=== PATIENT | male | born 1985 | race Caucasian/White ===

== ENCOUNTER 2018-01-09 10:36 | Emergency (ER) | payer OTHER ==
[2018-01-09 10:43] VITALS: BP 128/80
--- NOTE | 2018-01-09 11:38 | RADIOLOGY REPORT (SQ) ---
EXAM DESCRIPTION: SHOULDER LEFT 2 OR MORE VIEWS COMPLETED DATE/TIME: 01/09/2018 11:25 am REASON FOR STUDY: pain and injury COMPARISON: None. NUMBER OF VIEWS: Three views. TECHNIQUE: Internal rotation, external rotation, and Y view images acquired of the left shoulder. LIMITATIONS: None. FINDINGS: MINERALIZATION: Normal. BONES: No acute fracture or dislocation. No worrisome bone lesions. JOINTS: No dislocation. VISUALIZED LUNGS AND RIBS: No pneumothorax. No rib fracture. SOFT TISSUES: No radiopaque foreign body. OTHER: No other significant finding. IMPRESSION: NEGATIVE STUDY OF THE LEFT SHOULDER. NO RADIOGRAPHIC EVIDENCE OF ACUTE INJURY. TECHNICAL DOCUMENTATION: JOB ID: [id number] [employer]- All Rights Reserved Reading location - IP/workstation name: [email or web address]
[2018-01-09] MEDS ORDERED: IBUPROFEN 800 MG TABLET PO ONE (12:02)
--- NOTE | 2018-01-09 12:06 | ER Document Report ---
ED Extremity Problem, Upper - General Chief Complaint: Shoulder Pain Stated Complaint: SHOULDER PAIN Time Seen by Provider: 01/09/18 11:02 Mode of Arrival: Ambulatory Information source: Patient Notes: 2-year-old male presents to ED for complaint of left shoulder pain. States he was playing hockey last Wednesday when he dislocated his shoulder and put it back in place and self. He states that the shoulder has been having increased pain since this time. He states the pain is worse with movement. He states he does not have full range of motion at this time due to the pain. He says he has dislocated 3 times in the past and is never been to a doctor or an orthopedic doctor surgeon. Denies any other pain or discomfort. Patient is alert oriented lungs clear respirations regular unlabored speaking in full sentences no acute distress noted at this time. - HPI Patient complains to provider of: Pain, Left, Shoulder Onset: Last week Recent injury: Possibly Where: School Quality of pain: Sharp Severity of pain: Severe Pain Level: 5 Context: Other - Playing hockey last Wednesday a week ago - Related Data Allergies/Adverse Reactions: No Known Allergies Allergy (Verified 01/09/18 10:38) Past Medical History - General Information source: Patient - Social History Smoking Status: Former Smoker Cigarette use (# per day): No Smoking Education Provided: No Frequency of alcohol use: None Drug Abuse: None Occupation: States he is off work for 2 weeks Family History: Reviewed & Not Pertinent Patient has suicidal ideation: No Patient has homicidal ideation: No - Past Medical History Cardiac Medical History: Reports: None Pulmonary Medical History: Reports: None EENT Medical History: Reports: None Neurological Medical History: Reports: None Endocrine Medical History: Reports: None Renal/ Medical History: Reports: None Malignancy Medical History: Reports None GI Medical History: Reports: None Musculoskeltal Medical History: Reports Hx Arthritis, Reports Hx Musculoskeletal Trauma Skin Medical History: Reports None Psychiatric Medical History: Reports: None Traumatic Medical History: Reports: None Infectious Medical History: Reports: None Surgical Hx: Negative Past Surgical History: Reports: None Review of Systems - Review of Systems Constitutional: No symptoms reported EENT: No symptoms reported Cardiovascular: No symptoms reported Respiratory: No symptoms reported Gastrointestinal: No symptoms reported Genitourinary: No symptoms reported Male Genitourinary: No symptoms reported Musculoskeletal: Joint pain - Left shoulder pain Skin: No symptoms reported Hematologic/Lymphatic: No symptoms reported Neurological/Psychological: No symptoms reported -: Yes All other systems reviewed and negative Physical Exam - Vital signs Vitals: Temp Pulse Resp BP Pulse Ox 97.7 F 72 16 128/80 H 98 01/09/18 10:41 01/09/18 10:41 01/09/18 10:41 01/09/18 10:41 01/09/18 10:41 Interpretation: Normal - General General appearance: Appears well, Alert - HEENT Head: Normocephalic, Atraumatic Eyes: Normal Pupils: PERRL - Respiratory Respiratory status: No respiratory distress Chest status: Nontender Breath sounds: Normal Chest palpation: Normal - Cardiovascular Rhythm: Regular Heart sounds: Normal auscultation Murmur: No - Abdominal Inspection: Normal Distension: No distension Bowel sounds: Normal Tenderness: Nontender Organomegaly: No organomegaly - Back Back: Normal, Nontender - Extremities General upper extremity: Normal inspection, Normal color, Normal temperature General lower extremity: Normal inspection, Nontender, Normal color, Normal ROM , Normal temperature, Normal weight bearing. No: Lola's sign Shoulder: Tender, Limited ROM. No: Abrasion, Deformity, Dislocation, Ecchymosis , Instability, Laceration - Due to pain Arm: Normal - Neurological Neuro grossly intact: Yes Cognition: Normal Orientation: AAOx4 Alpha Coma Scale Eye Opening: Spontaneous Shi Coma Scale Verbal: Oriented Alpha Coma Scale Motor: Obeys Commands Alpha Coma Scale Total: 15 Speech: Normal Motor strength normal: LUE, RUE, LLE, RLE Sensory: Normal - Psychological Associated symptoms: Normal affect, Normal mood - Skin Skin Temperature: Warm Skin Moisture: Dry Skin Color: Normal Course - Re-evaluation Re-evalutation: 01/09/18 13:08 Discussed x-rays with patient there is no acute injuries noted on the x-ray. Patient does state that he has decreased range of motion to the shoulder due to pain. Instructed patient on the need to move the shoulder to rotate the shoulder to prevent frozen shoulder. Patient was placed in a sling and given a list of shoulder exercises to work on. He was also medicated with ibuprofen and given a prescription for a small amount of Cameron and Flexeril. He was instructed to follow-up with orthopedics by telephone tomorrow to schedule an appointment for follow-up. Patient was able to verbalize understanding of instructions and agreement with treatment plan. Patient was instructed on use of ice and warm packs. - Vital Signs Vital signs: Temp Pulse Resp BP Pulse Ox 97.7 F 72 16 128/80 H 98 01/09/18 10:41 01/09/18 10:41 01/09/18 10:41 01/09/18 10:41 01/09/18 10:41 - Diagnostic Test Radiology reviewed: Image reviewed, Reports reviewed Procedures - Immobilization Left Shoulder Time completed: 12:10 Immobilizer type: Sling Performed by: RN Post-Proc Neuro Vasc Exam: Normal Alignment checked and good: Yes Discharge - Discharge Clinical Impression: Injury of left shoulder Qualifiers: Encounter type: initial encounter Qualified Code(s): S49.92XA - Unspecified injury of left shoulder and upper arm, initial encounter HTN (hypertension) Qualifiers: Hypertension type: unspecified Qualified Code(s): I10 - Essential (primary) hypertension Condition: Stable Disposition: HOME, SELF-CARE Additional Instructions: Shoulder Injury You have injured your shoulder. This usually results from stretching or tearing of the tendons during trauma. Time and protection are required in order to heal properly. Many injuries are quite disabling, and should be taken seriously. Initial treatment includes cold packs and a sling to rest the shoulder. The physician has assessed the seriousness of your injury, and has outlined a treatment plan. Understand that this treatment may change, depending on how you progress. If a re-examination was recommended, it is important that you follow up as instructed. Some shoulder injuries (such as partial tear of the rotator cuff) are only suspected after you've failed to improve. Call us if there's severe pain, numbness, or loss of function. Exercise Program for the Shoulder Since the shoulder moves in so many directions, the joint attachment is weak. Muscles provide most of the stability to the shoulder. You must exercise your shoulder to prevent painful instability or stiffening. PASSIVE - These may be begun within a few days of the injury. While standing, lean forward, allowing the arm to hang down towards the floor. Move the arm in small circles while slowly twisting your chest towards and away from the hanging arm. Do this for one minute. ACTIVE - These may be performed when the doctor gives permission. Begin with the arms at the sides. Raise the arms forward (shoulder's width apart) until they reach shoulder level. Then slowly swing both arms back until they are aiming straight out away from each other. Then bring them forward again, and finally, lower them to your sides. Repeat 20 to 30 times. As you improve, put weights in your hands for the exercise. Start with one pound, and work up to 10 pounds. Never use more than is comfortable. Athletes may work up to 30 pounds. Ice Massage When experiencing low back spasms, you can ice-massage every hour. Freeze water in a paper or styrofoam cup. Peel one or two inches off the top of the cup. The ice goes directly against the skin. You use the remainder of the cup for a handle. Lie on your stomach with a pillow under your pelvis and have someone give you the ice massage. You may also lie on your side with a pillow in between your legs. Gently massage a four inch by six inch area on one side of your spine, but not directly on the bone. Ice the area where you think the pain starts. Do this for five to seven minutes. At first the ice will feel very cold and then it will burn. Do not do any longer than seven minutes; you do not want to get frostbite. USE OF NHUT-RAP-EEXRENU IBUPROFEN: Ibuprofen (Advil, Nuprin, Medipren, Motrin IB) is a medication for fever and pain control. In addition, it has anti- inflammatory effects which may be beneficial, especially in the treatment of injuries. It's best to take ibuprofen with food. Persons with ulcer disease or allergy to aspirin should notify their physician of this before taking ibuprofen. Ibuprofen can be given every four to six hours, for a total of four doses daily. Age Pain or fever dose Antiinflammatory dose 6-8 yr 200 mg (1 tab) 200 mg (1 tab) 9-11 yr 200 mg (1 tab) 200-400 mg (1-2 tab) 11-14 yr 200-400 mg (1-2 tab) 400 mg (2 tab) 15-adult 400 mg (2 tab) 600 mg (3 tab) ORAL NARCOTIC MEDICATION: You have been given a prescription for pain control. This medication is a narcotic. It's best taken with food, as nausea can result if taken on an empty stomach. Don't operate machinery or drive within six hours of taking this medication. Do not combine this medicine with alcohol, or with any medication which can cause sedation (such as cold tablets or sleeping pills) unless you get permission from the physician. Narcotics tend to cause constipation. If possible, drink plenty of fluids and eat a diet high in fiber and fruits. Please be aware that prescription narcotics also have the potential for abuse. People become addicted to these medications because of the general sense of wellbeing that they induce. This feeling along with a significant reduction in tension, anxiety, and aggression provides a stimulating seductive quality to these drugs. Once your pain is under control, we encourage you to discard your unused narcotics. Muscle Relaxers Muscle relaxing medications are usually prescribed for acute muscle spasm or injury to the neck and back. They are often combined with antiinflammatory pain medication for increased relief. You may stop the muscle relaxer when the pain and stiffness have improved. Start the medication again if spasms recur. Muscle relaxers may cause drowsiness, especially with the first dose. Do not operate machinery or drive while under the effects of the medication. Most muscle relaxers last up to 24 hours. Do not combine the medication with alcohol. FOLLOW-UP CARE: If you have been referred to a physician for follow-up care, call the physician s office for an appointment as you were instructed or within the next two days. If you experience worsening or a significant change in your symptoms, notify the physician immediately or return to the Emergency Department at any time for re-evaluation. Prescriptions: Hydrocodone/Acetaminophen [Cameron 5-325 mg Tablet] 1 tab PO Q6HP PRN #6 tablet PRN Reason: Cyclobenzaprine HCl [Flexeril 10 mg Tablet] 10 mg PO TIDP PRN #15 tab PRN Reason: Forms: Elevated Blood Pressure Referrals: DANUTA HOUSER MD [ACTIVE STAFF] - Follow up as needed
== END 2018-01-09 12:13 | disposition home or self-care (01) ==
LOC: ER 10:36
DX: S49.92XA Unspecified injury of left shoulder and upper arm, initial encounter (principal); X58.XXXA Exposure to other specified factors, initial encounter; Y93.69 Activity, other involving other sports and athletics played as a team or group; Y92.219 Unspecified school as the place of occurrence of the external cause; I10 Essential (primary) hypertension; Z87.891 Personal history of nicotine dependence
CPT/HCPCS: 99283

== ENCOUNTER → 2020-01-15 | Day surgery (SDC) | payer OTHER ==
[~2020-01-15] MED LIST: LIDOCAINE 1% INJ-PF (10 MG/ML) 30 ML SDV ONE
--- NOTE | 2020-01-15 12:46 | RADIOLOGY REPORT (SQ) ---
EXAM DESCRIPTION: FLUORO/NEEDLE PLACEMENT; ARTHRO SHOULDER INJECTION IMAGES COMPLETED DATE/TIME: 01/15/2020 10:35 am REASON FOR STUDY: M25.512 PAIN IN LEFT SHOULDER M25.512 PAIN IN LEFT SHOULDER COMPARISON: None. FLUOROSCOPY TIME: 0.5 minutes 1 images saved to PACS. LIMITATIONS: None. PROCEDURE: Procedure, risks, benefits and alternatives explained to patient who then gave written co nsent. The left posterior shoulder was marked and a time out was called for correct procedure verific ation. Posterior entry site marked using fluoroscopic guidance. Shoulder prepped and draped using s terile technique. Local anesthesia achieved using 1% lidocaine injection. Hypodermic needle introdu jennyfer into the joint space under direct fluoroscopic visualization. Non-ionic contrast instilled to con firm intra-articular position. Dilute gadolinium solution then injected. Needle removed and entry si te covered with sterile bandage. No immediate complications noted. TECHNIQUE: Digital images acquired during fluoroscopy and stored on PACS. Patient immediately take n to the MR suite for additional imaging. INJECTION LOCATION: Left posterior shoulder CONTRAST TYPE AND AMOUNT: 1 mL Omnipaque 300, 10 mL dilute gadolinium IMPRESSION: SUCCESSFUL NEEDLE PLACEMENT AND INJECTION FOR LEFT SHOULDER MR ARTHROGRAM USING POSTERIO R APPROACH. COMMENT: None Quality ID [id number]: Final reports for procedures using fluoroscopy that document radiation exposure sarah olga lidia, or exposure time and number of fluorographic images (if radiation exposure indices are not avail able) TECHNICAL DOCUMENTATION: JOB ID: [id number] 2010 [employer]- All Rights Reserved Reading location - IP/workstation name: [email or web address] [id number]
--- NOTE | 2020-01-15 12:46 | RADIOLOGY REPORT (SQ) ---
EXAM DESCRIPTION: FLUORO/NEEDLE PLACEMENT; ARTHRO SHOULDER INJECTION IMAGES COMPLETED DATE/TIME: 01/15/2020 10:35 am REASON FOR STUDY: M25.512 PAIN IN LEFT SHOULDER M25.512 PAIN IN LEFT SHOULDER COMPARISON: None. FLUOROSCOPY TIME: 0.5 minutes 1 images saved to PACS. LIMITATIONS: None. PROCEDURE: Procedure, risks, benefits and alternatives explained to patient who then gave written co nsent. The left posterior shoulder was marked and a time out was called for correct procedure verific ation. Posterior entry site marked using fluoroscopic guidance. Shoulder prepped and draped using s terile technique. Local anesthesia achieved using 1% lidocaine injection. Hypodermic needle introdu jennyfer into the joint space under direct fluoroscopic visualization. Non-ionic contrast instilled to con firm intra-articular position. Dilute gadolinium solution then injected. Needle removed and entry si te covered with sterile bandage. No immediate complications noted. TECHNIQUE: Digital images acquired during fluoroscopy and stored on PACS. Patient immediately take n to the MR suite for additional imaging. INJECTION LOCATION: Left posterior shoulder CONTRAST TYPE AND AMOUNT: 1 mL Omnipaque 300, 10 mL dilute gadolinium IMPRESSION: SUCCESSFUL NEEDLE PLACEMENT AND INJECTION FOR LEFT SHOULDER MR ARTHROGRAM USING POSTERIO R APPROACH. COMMENT: None Quality ID 145: Final reports for procedures using fluoroscopy that document radiation exposure sarah olga lidia, or exposure time and number of fluorographic images (if radiation exposure indices are not avail able) TECHNICAL DOCUMENTATION: JOB ID: [id number] 2010 [employer]- All Rights Reserved Reading location - IP/workstation name: [email or web address] [id number]
== END ==
LOC: RAD 09:56
PROVIDERS: ATTEND Orthopaedic Surgery
DX: M25.512 Pain in left shoulder (principal)
CPT/HCPCS: 73222; 77002; 23350; A9576; J3490